=== PATIENT | male | born 1990 | race African-American/Black ===

== ENCOUNTER 2022-02-21 11:38 | Inpatient (IN) | payer MEDICAID ==
[~2022-02-21] VITALS: Ht 175.3 cm; Wt 73.5 kg
--- NOTE | 2022-02-21 11:38 | NUR ---
PT BIB SELF C/O RECTAL PAIN AND SWELLING FOR 3 DAYS. PT IS AAOX4, NOT IN RESPIRATORY DISTRESS, HOOKED TO V/S MONITOR, KEPT RESTED AND COMFORTABLE. WILL CONTINUE TO MONITOR.
--- NOTE | 2022-02-21 11:55 | NUR ---
AT BEDSIDE FOR EVAL.
[2022-02-21] MEDS ORDERED: ONDANSETRON HCL/PF 4 MG/2 ML VIAL IVP ONE (12:00)
[2022-02-21] MEDS ORDERED: PIPERACILLIN /TAZOBACTAM 3.375 G in IV D5W 50 ML IV ONE (12:00)
[2022-02-21] MEDS ORDERED: IV NS 0.9% 1,000 ML BAG IV ONE (12:00)
[2022-02-21] MEDS ORDERED: MORPHINE SULFATE INJ 2 MG/ML DISP.SYRIN IV ONE ×2 (12:00→16:00)
--- NOTE | 2022-02-21 12:00 | NUR ---
IV LINE ESTABLISHED BLOOD DRAWN AND SENT TO LAB.
[2022-02-21] MEDS ORDERED: ONDANSETRON HCL/PF 4 MG/2 ML VIAL ONE (12:06)
[2022-02-21] MEDS ORDERED: MORPHINE SULFATE INJ 4 MG/ML DISP.SYRIN ONE (12:07)
[2022-02-21] MEDS ORDERED: IOHEXOL-300 100 ML VIAL IV ONE (12:22)
[2022-02-21] MEDS ORDERED: IV NS 0.9% 250 ML IV ONE (12:22)
[2022-02-21] MEDS ORDERED: CT SWABBABLE VALVE TRANS SET 1 EA INFUS.SET MC ONE (12:22)
[2022-02-21 12:34] LABS: CALCIUM, SERUM 9.4 mg/dL (8.5-10.1); POTASSIUM 3.6 mmol/L (3.5-5.1)
--- NOTE | 2022-02-21 12:41 | NUR ---
SWAB FOR COVID19 SENT TO LAB
[2022-02-21 12:45] LABS: ALBUMIN 3.9 g/dL (3.4-5.0); BILIRUBIN,DIRECT 0.2 mg/dL (0.0-0.2); BILIRUBIN,TOTAL 0.6 mg/dL (0.2-1.0); TOTAL PROTEIN, SERUM 7.8 g/dL (6.4-8.2)
[2022-02-21 12:49] LABS: BASOPHILS % (AUTO) 0.2 % (0.0-2.0); EOSINOPHILS % (AUTO) 0.2 % (0.0-6.0); HEMATOCRIT 46 % (39-51); HEMOGLOBIN 15.5 g/dL (13.5-17.5); LYMPHOCYTES # (AUTO) 0.9 K/uL (0.8-4.8); LYMPHOCYTES % (AUTO) 6.7 % (20.0-44.0); MEAN CORPUSCULAR HGB CONC 34 g/dl (31.0-36.0); MEAN CORPUSCULAR VOLUME 88 fL (80-96); MONOCYTES # (AUTO) 0.8 K/uL (0.1-1.30); NEUTROPHILS # (AUTO) 11.2 K/uL (1.8-8.9); NEUTROPHILS % (AUTO) 86.9 % (43.0-81.0); PLATELET COUNT (AUTO) 150 K/uL (150-450); RED BLOOD CELL COUNT(AUTO) 5.22 MIL/uL (4.5-6.0); WHITE BLOOD COUNT (AUTO) 12.9 K/uL (4.3-11.0)
--- NOTE | 2022-02-21 13:24 | NUR ---
[facility] CALLED READING SPECIALIST PAGED.
--- NOTE | 2022-02-21 13:30 | NUR ---
DR. GOODSON SPEAKING WITH HOSPITALIST.
--- NOTE | 2022-02-21 13:50 | NUR ---
DR. NEWTON SPEAKING WITH DR. GOODSON.
[2022-02-21] MEDS ORDERED: LIDOCAINE 2%-EPI 1:100,000 30 ML VIAL ONE (14:41)
--- NOTE | 2022-02-21 14:43 | NUR ---
ROOM 117-1
--- NOTE | 2022-02-21 14:47 | NUR ---
MICHELLE FRANCISCO, FOR REPORT
[2022-02-21] MEDS ORDERED: ACETAMINOPHEN 325 MG TABLET PO PRN (15:30)
[2022-02-21] MEDS ORDERED: ONDANSETRON HCL/PF 4 MG/2 ML VIAL IVP PRN (15:30)
[2022-02-21] MEDS ORDERED: Z GUARD REMEDY 4 OZ OINT TP PRN (15:30)
[2022-02-21] MEDS ORDERED: MORPHINE SULFATE INJ 2 MG/ML DISP.SYRIN IV PRN (15:30)
[2022-02-21] MEDS ORDERED: IV NS 0.9% 1,000 ML IV PRN (15:30)
--- NOTE | 2022-02-21 15:31 | NUR ---
PT REPORT GIVEN TO MICHELLE FRANCISCO
[2022-02-21 16:30] VITALS: BP 129/68
--- NOTE | 2022-02-21 16:30 | NUR ---
MS RN OPENING NOTE RECEIVED PATIENT FROM ER VIA PAYAL ACCOMPANIED BY MICHELLE MOELLER. ON ROOM AIR, BREATHING UNLABORED AND NOT IN ANY FORM OF DISTRESS. PATIENT HAS LEFT ANTECUBITAL SALINE LOCK, INTACT AND PATENT. PATIENT WAS ORIENTED TO ROOM AND HOSPITAL POLICIES WELL DIET AND TREATMENT REGIMEN. BED IS LOCKED IN LOWEST POSITION, 3 SIDE RAILS UP, CALL LIGHT WITHIN REACH. WILL CONTINUE TO MONITOR.
[2022-02-21] MEDS: DOCUSATE SODIUM 100 MG CAPSULE PO SCH (16:52)
--- NOTE | 2022-02-21 16:55 | NUR ---
wheeled patient via gurney accompanied by RN in no distress. RN assigned at bedside to assume care.
[2022-02-21] MEDS ORDERED: PIPERACILLIN /TAZOBACTAM 4.5 G in IV D5W 50 ML IV SCH (18:00)
--- NOTE | 2022-02-21 18:52 | NUR ---
RN NOTE UNABLE TO TAKE A PHOTO OF WOUND DUE TO PAIN AND TENDERNESS FELT BY PATIENT. REINFORCED WOUND DRESSING. 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
--- NOTE | 2022-02-21 18:54 | NUR ---
RN CLOSING NOTE PATIENT IS RESTING COMFORTABLY IN BED AND REMAINED STABLE THROUGHOUT SHIFT. PATIENT STILL VERBALIZES PAIN IN THE PERINEAL AREA ESPECIALLY WHEN CHANGING POSITION. IV LINE INTACT AND INFUSING WITH NS AT 75 ML/HR. ALL NEEDS ATTENDED. WILL ENDORSE TO PLASTICS NURSE NURSE.
[2022-02-21] MEDS: PIPERACILLIN /TAZOBACTAM 3.375 G in IV D5W 100 ML IV SCH (20:09)
[2022-02-21 20:15] VITALS: BP 141/59
[2022-02-22] MEDS: PIPERACILLIN /TAZOBACTAM 3.375 G in IV D5W 100 ML IV SCH ×2 (03:28→11:58)
--- NOTE | 2022-02-22 04:28 | NUR ---
CLOSING NOTES: ALERT AND ORIENTATED X4 SMILING AND CHEERFUL COOPERATIVE AMBULATES TO THE BATHROOM STEADY ON HIS LEGS LEFT INNER BUTTOCK AREA WITH PACKING AND GAUZE DRESSING CHANGED X1 D/T IN WAS FALLING OFF SMALL AMOUNT DRAINAGE A GOOD NIGHT
[2022-02-22 06:00] VITALS: BP 96/48
[2022-02-22 06:31] LABS: BASOPHILS % (AUTO) 0.1 % (0.0-2.0); EOSINOPHILS % (AUTO) 0.6 % (0.0-6.0); HEMATOCRIT 44 % (39-51); HEMOGLOBIN 14.7 g/dL (13.5-17.5); LYMPHOCYTES # (AUTO) 1.3 K/uL (0.8-4.8); MEAN CORPUSCULAR HGB CONC 34 g/dl (31.0-36.0); MEAN CORPUSCULAR VOLUME 89 fL (80-96); MONOCYTES # (AUTO) 0.6 K/uL (0.1-1.30); MONOCYTES % (AUTO) 7.4 % (2.0-12.0); NEUTROPHILS # (AUTO) 6.1 K/uL (1.8-8.9); NEUTROPHILS % (AUTO) 75.9 % (43.0-81.0); PLATELET COUNT (AUTO) 129 K/uL (150-450); RED BLOOD CELL COUNT(AUTO) 4.92 MIL/uL (4.5-6.0); WHITE BLOOD COUNT (AUTO) 8.1 K/uL (4.3-11.0)
[2022-02-22 06:36] LABS: CALCIUM, SERUM 9.2 mg/dL (8.5-10.1); CREATININE 0.9 mg/dL (0.6-1.3); PHOSPHORUS 3.8 mg/dL (2.5-4.9); POTASSIUM 3.7 mmol/L (3.5-5.1)
[2022-02-22 08:00] VITALS: BP 116/62
[2022-02-22] MEDS: DOCUSATE SODIUM 100 MG CAPSULE PO SCH (08:13)
[2022-02-22] MEDS ORDERED: IBUP-1955 PO (14:20)
[2022-02-22] MEDS ORDERED: DOXY-326 PO (14:20)
--- NOTE | 2022-02-22 15:24 | NUR ---
RN NOTE PT D/C TO HOME. IN GOOD CONDITION. NOT IN DISTRESS. D/C INSTRUCTIONS GIVEN, PT VERBALIZED UNDERSTANDING AND COMPLIANCE TO MEDS AND F/U VISIT WITH PCP. PT WENT HOME VIA PVT CAR. V/S STABLE.
== END 2022-02-22 15:24 | disposition home or self-care (01) | DRG 364 ==
LOC: ER 11:47 → MEDSG1 14:49
PROVIDERS: ADMIT Nurse Practitioner Acute Care; ATTEND Nurse Practitioner Acute Care
PROC: 0J9B0ZZ Drainage of Perineum Subcutaneous Tissue and Fascia, Open Approach (ICD-10-PCS; principal; 2022-02-21)
DX: L02.215 Cutaneous abscess of perineum (principal); D72.829 Elevated white blood cell count, unspecified; Z20.822 Contact with and (suspected) exposure to COVID-19
CPT/HCPCS: 36415; 71045-TC; 80048-TC; 80061-TC; 80076-TC; 83605-TC; 83735-TC; 84100-TC; 85025-TC; 85730-TC; 87040-TC; 87070-TC; 87081-TC; A6403; A6407; C9803; G0378; J2270; J2405; J2543; J3490; J7030; J7050; J7060; Q9967